=== PATIENT | male | born 2005 | race Two or more races ===

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

== ENCOUNTER 2024-09-13 13:58 | Outpatient (CLI) | payer OTHER | END 2024-09-13 14:09 | disposition home or self-care (01) | LOC: SONOGRAMA 13:58 | PROVIDERS: ATTEND Pediatrics | DX: N50.812 Left testicular pain (principal) ==